=== PATIENT | male | born 1980 | race Caucasian/White ===

== ENCOUNTER 2019-08-04 02:36 | Inpatient (IN) | payer MEDICAID ==
[~2019-08-04] VITALS: Ht 182.9 cm; Wt 93.0 kg
--- NOTE | 2019-08-04 02:55 | NUR ---
Dr. Negron at bedside for MSE.
[2019-08-04] MEDS ORDERED: LORAZEPAM 2 MG/1 ML VIAL IM ONE (03:00)
[2019-08-04] MEDS ORDERED: HALOPERIDOL LACTATE 5 MG/1 ML VIAL IM ONE (03:00)
[2019-08-04] MEDS ORDERED: HALOPERIDOL LACTATE 5 MG/1 ML VIAL ONE (03:01)
[2019-08-04] MEDS ORDERED: LORAZEPAM 2 MG/1 ML VIAL ONE (03:01)
--- NOTE | 2019-08-04 03:10 | NUR ---
Patient keeps getting out of bed, pulling/pushing on bed and equipment, restless, agitated, risk for injury to self, MD notified for restraint order.
--- NOTE | 2019-08-04 03:40 | NUR ---
Xray at bedside.
[2019-08-04 04:15] LABS: BASOPHILS # (AUTO) 0.1 K/uL (0.0-8.0); BASOPHILS % (AUTO) 0.7 % (0.0-2.0); EOSINOPHILS # (AUTO) 0.6 K/uL (0.0-0.7); EOSINOPHILS % (AUTO) 4.8 % (0.0-7.0); HEMATOCRIT 37.2 % (36.7-47.1); HEMOGLOBIN 12.7 g/dL (12.5-16.3); LYMPHOCYTES # (AUTO) 2.3 K/uL (20.0-40.0); LYMPHOCYTES % (AUTO) 18.7 % (20.5-51.5); MEAN CORPUSCULAR HEMOGLOBIN 30.3 uug (23.8-33.4); MEAN CORPUSCULAR HGB CONC 34 g/dL (32.5-36.3); MEAN CORPUSCULAR VOLUME 88.4 fL (73.0-96.2); MONOCYTES # (AUTO) 1.1 K/uL (2.0-10.0); MONOCYTES % (AUTO) 8.8 % (0.0-11.0); NEUTROPHILS # (AUTO) 8.1 K/uL (1.8-8.9); PLATELET COUNT (AUTO) 277 K/uL (152-348); RED BLOOD CELL COUNT(AUTO) 4.21 MIL/uL (4.06-5.63); WHITE BLOOD COUNT (AUTO) 12.1 K/uL (3.6-10.2)
[2019-08-04 04:18] LABS: CARBON DIOXIDE 30 mmol/L (21-32); CHLORIDE 109 mmol/L (98-107); CREATININE 1.4 mg/dL (0.6-1.3); GLUCOSE 107 mg/dL (74-106); POTASSIUM 4.1 mmol/L (3.5-5.1); UREA NITROGEN, BLOOD 17 mg/dL (7-18)
[2019-08-04 04:24] LABS: ALANINE AMINOTRANSFERASE 37 U/L (16-63); ALKALINE PHOSPHATASE 58 U/L (50-136); ASPARTATE AMINOTRANSFERASE 40 U/L (15-37); BILIRUBIN,DIRECT 0.1 mg/dL (0.0-0.2); BILIRUBIN,TOTAL 0.4 mg/dL (0.2-1.0); TOTAL PROTEIN, SERUM 6.7 g/dL (6.4-8.2)
[2019-08-04 04:30] LABS: ACETAMINOPHEN < 2.0 ug/mL (10-30)
[2019-08-04 04:32] LABS: ETHANOL < 3 MG/DL (0-0)
--- NOTE | 2019-08-04 04:49 | NUR ---
Collected urine sample, sent to lab.
[2019-08-04 05:05] LABS: *BILIRUBIN,URIN NEGATIVE (NEGATIVE); *BLOOD, URINE NEGATIVE (NEGATIVE); *CLARITY,URINE CLEAR (CLEAR); *COLOR,URINE YELLOW (YELLOW); *KETONES,URINE NEGATIVE (NEGATIVE); *UROBILINOGEN,URINE 0.2 E.U./dl (NORMAL); LEUKOCYTE ESTERASE ,URINE NEGATIVE (NEGATIVE); NITRITE, URINE NEGATIVE (NEGATIVE); PH,URINE 5.5 (5.0-8.0); UGLUCOSE NEGATIVE (NEGATIVE)
[2019-08-04 05:14] LABS: *AMPHETAMINE, URINE POSITIVE (NEGATIVE); *BARBITURATE, URINE NEGATIVE (NEGATIVE); *CANNABINOID, URINE POSITIVE (NEGATIVE); *COCCAINE, URINE POSITIVE (NEGATIVE); *OPIATE, URINE NEGATIVE (NEGATIVE); *PHENCYCLIDINE SCREEN,URINE NEGATIVE (NEGATIVE)
--- NOTE | 2019-08-04 05:15 | NUR ---
Patient sleeping in bed, no acute signs of distress, released foot restraints.
--- NOTE | 2019-08-04 05:30 | NUR ---
Pt medically cleared by Dr. Negron.
--- NOTE | 2019-08-04 06:15 | NUR ---
Pt sleeping in bed, no acute signs of distress, on wrist restraints.
--- NOTE | 2019-08-04 06:47 | NUR ---
Report given to Jayden adler.
--- NOTE | 2019-08-04 07:27 | NUR ---
PT IS IN ROOM #2B. DR PETERS EVALUATED THE PT.
--- NOTE | 2019-08-04 08:24 | NUR ---
Called [facility] for panel placement
--- NOTE | 2019-08-04 09:03 | NUR ---
REPORT WAS GIVEN TO [facility] BY DUSTING AND BRUSHING MACHINE OPERATORMATT GREEN.
[2019-08-04 09:35] VITALS: BP 115/70
--- NOTE | 2019-08-04 09:35 | NUR ---
PT WAS TRANSFERED TO TELEMETRY ROOM #325.
[2019-08-04] MEDS ORDERED: ONDANSETRON 4 MG/2 ML VIAL IV PRN (09:45)
[2019-08-04] MEDS ORDERED: HYDROCODONE/APAP 5-325MG TABLET PO PRN (09:45)
[2019-08-04] MEDS ORDERED: MAGNESIUM HYDROXIDE 30 ML LIQUID UDC PO PRN (09:45)
[2019-08-04] MEDS ORDERED: Z GUARD REMEDY PASTE 57 GM TUBE TOP PRN (09:45)
[2019-08-04] MEDS ORDERED: ZOLPIDEM 5 MG TABLET PO PRN (09:45)
[2019-08-04] MEDS ORDERED: ACETAMINOPHEN 325 MG TABLET PO PRN (09:45)
--- NOTE | 2019-08-04 09:55 | NUR ---
RECEIVED PATIENT IN ASLEEP, AROUSABLE TO LIGHT PAIN. NO S/S OF SOB. PT SR ON THE MONITOR. NO S/S OF ACUTE DISTRESS. BED IN LOWEST POSITION, SIDE RAILS UP X2, CALL LIGHT WITHIN REACH, BED ALARM ON. WILL CONTINUE TO MONITOR.
[2019-08-04] MEDS: IV NS 1000 ML 1,000 ML IV PRN (10:50)
[2019-08-04 11:33] VITALS: BP 119/66
[2019-08-04 16:00] VITALS: BP 118/65
--- NOTE | 2019-08-04 16:21 | NUR ---
CALLED AND SPOKE TO DR EDGAR MCKEON PATIENT IS ASLEEP NOW BUT WILL NEED SOME PSYCHOTROPIC MEDICATIONS ONCE HE WAKES UP STATED TO ORDER A SITTER FOR HIM AND TO OBSERVE HIM FOR NOW WILL REASSESS AND ORDER SOMETHING FOR HIM NEEDED.
--- NOTE | 2019-08-04 18:32 | NUR ---
STILL SLEEPING MOVING IN BED DID NOT RESPOND VERBALLY WHEN SPOKEN TO HAS MADE NO ATTEMPTS TO GET OUT OF BED BUT HE HAS CONTINEOUSLY REMOVED HIS O2 MASK, ON ROOM AIR HE IS 90 TO 91 PERCENT O2 MASK REAPPLIED AND SAT IS 94-95 PERCENT.WILL CONTINUE TO OBSERVE.
--- NOTE | 2019-08-04 19:30 | NUR ---
RECEIVED PT IN NO ACUTE DISTRESS. IV INTACT. SAFETY AND COMFORT PROVIDED. WILL CONTINUE TO MONITOR.
[2019-08-04 20:44] VITALS: BP 109/62
[2019-08-05] VITALS: BP 124/77
[2019-08-05] MEDS: IV NS 1000 ML 1,000 ML IV PRN ×2 (00:21→10:41)
--- NOTE | 2019-08-05 00:58 | NUR ---
PT WOKE UP AT 2340H AND AGITATED. HE STATED HE CAN'T BREATHE. CHECKED OXYGEN SATURATION AND ITS 98%. CHECKED OTHER VITAL SIGNS AND ITS WITHIN NORMAL LIMIT. PT RESTLESS. EDUCATED THE PT THAT HE NEEDS HIS OXYGEN MASK ON. ELSIE GIVEN AT 0019H. SAFETY AND COMFORT PROVIDED. WILL CONTINUE TO MONITOR. 1:1 SITTER FOR SAFETY.
[2019-08-05 04:36] VITALS: BP 128/82
--- NOTE | 2019-08-05 06:13 | NUR ---
PT IN NO ACUTE RESPIRATORY DISTRESS. PRESCRIBED MEDICATION GIVEN AND PT TOLERATED IT WELL. 1:1 SITTER FOR SAFETY.PT WOKE UP AND ASK WHY HE WAS HERE. PT CALLED SOMEONE ON THE PHONE. REORIENT THE PT THAT THE MASK WILL HELP HIM BREATHE. SAFETY AND COMFORT PROVIDED. ALL NEEDS ARE MET. WILL ENDORSE TO INCOMING NURSE FOR CONTINUITY OF CARE
[2019-08-05 06:21] LABS: BASOPHILS % (AUTO) 0.3 % (0.0-2.0); EOSINOPHILS # (AUTO) 0.2 K/uL (0.0-0.7); EOSINOPHILS % (AUTO) 2.1 % (0.0-7.0); HEMATOCRIT 37.8 % (36.7-47.1); LYMPHOCYTES # (AUTO) 1.5 K/uL (20.0-40.0); LYMPHOCYTES % (AUTO) 13.5 % (20.5-51.5); MEAN CORPUSCULAR HEMOGLOBIN 30.7 uug (23.8-33.4); MEAN CORPUSCULAR HGB CONC 35 g/dL (32.5-36.3); MONOCYTES # (AUTO) 0.6 K/uL (2.0-10.0); MONOCYTES % (AUTO) 5.7 % (0.0-11.0); NEUTROPHILS # (AUTO) 8.9 K/uL (1.8-8.9); NEUTROPHILS % (AUTO) 78.4 % (38.5-71.5); PLATELET COUNT (AUTO) 260 K/uL (152-348); RED BLOOD CELL COUNT(AUTO) 4.25 MIL/uL (4.06-5.63); WHITE BLOOD COUNT (AUTO) 11.4 K/uL (3.6-10.2)
[2019-08-05 06:40] LABS: CREATININE 1.2 mg/dL (0.6-1.3); MAGNESIUM 1.8 mg/dL (1.8-2.4); PHOSPHOROUS 2.6 mg/dL (2.5-4.9); POTASSIUM 3.9 mmol/L (3.5-5.1)
[2019-08-05 08:13] VITALS: BP 145/81
--- NOTE | 2019-08-05 10:54 | NUR ---
PATIENT IS AWAKE CONFUSED PULLED OUT HIS BILATERAL NASAL TRUMPET WANTS TO EAT AND DRINK DR GERALDO LOPEZ NOTIFIED STATED TO PLACE PATIENT ON REGULAR DIET DIETARY NOTIFIED.
--- NOTE | 2019-08-05 11:15 | NUR ---
PATIENT FED SELF TOLERATED WELL WITH NO S/S OF ASPIRATION AWAKE ALERT AND COOPERATIVE AT THIS TIME
[2019-08-05 11:16] VITALS: BP 155/90
--- NOTE | 2019-08-05 13:30 | NUR ---
PATIENT SEEN AND EXAMINED BY DR GERALDO LOPEZ WITH ORDER TO D/C HOME TODAY AND FOR HIM TO FOLLOW UP WITH THE REHAB INITIALLY PLANNED
[2019-08-05 14:13] VITALS: BP 135/91
--- NOTE | 2019-08-05 14:15 | NUR ---
Called Josué patient's mother and notified her that patient has been discharged. Discharge instructions were given to her which includes to follow up with the rehab as initially planned. And also to follow up with his primary care physician within one week and also alcohol cessation and to return to emergency room for worsening respiratory symptoms. Patient is currently on room air with adequate saturation and she expressed understanding. Patient will be picked up around 1445.
--- NOTE | 2019-08-05 14:50 | NUR ---
PATIENT DISCHARGED PICKED UP BY HIS MOM IN SATISFACTORY CONDITION WITH DISCHARGE INSTRUCTIONS PATIENT TO FOLLOW UP WITH THE REHAB PREVIOUSLY ARRANGED DISCHARGED IN SATISFACTORY CONDITION WITH ALL OF HIS PERSONAL BELONGINGS.
== END 2019-08-05 13:45 | disposition home or self-care (01) | DRG 816 ==
LOC: ER 02:53 → TELE3 08:47
PROVIDERS: ADMIT Family Medicine; ATTEND Hospitalist
DX: T40.5X1A Poisoning by cocaine, accidental (unintentional), initial encounter (principal); N17.0 Acute kidney failure with tubular necrosis; J96.01 Acute respiratory failure with hypoxia; G92 Toxic encephalopathy; E03.9 Hypothyroidism, unspecified; D72.829 Elevated white blood cell count, unspecified; Y92.009 Unspecified place in unspecified non-institutional (private) residence as the place of occurrence of the external cause
CPT/HCPCS: 36415; 70450; 71045; 80307; 80329; 83735; 84100; 85025; 93005; A4663; C1758; G0378; G0480; G0480-TC; J1630; J2060; J7030

== ENCOUNTER 2019-10-19 15:52 | Emergency (ER) | payer MEDICAID, OTHER ==
[~2019-10-19] VITALS: Ht 180.3 cm; Wt 86.2 kg
[2019-10-19] MEDS ORDERED: TDAP DIPH,PERTUSS,TET VAC/PF 0.5 ML DISP.SYRIN IM ONE ×2 (16:15→16:25)
[2019-10-19 16:58] VITALS: BP 126/62
== END 2019-10-19 16:38 | disposition home or self-care (01) ==
LOC: ER 15:54
DX: S01.81XA Laceration without foreign body of other part of head, initial encounter (principal); W22.8XXA Striking against or struck by other objects, initial encounter; Y93.18 Activity, surfing, windsurfing and boogie boarding; Y92.832 Beach as the place of occurrence of the external cause; E03.9 Hypothyroidism, unspecified
CPT/HCPCS: 90715; A4217; A4663